=== PATIENT | male | born 1985 | race Caucasian/White ===

== ENCOUNTER 2019-12-12 09:15 | Emergency (ER) | payer OTHER ==
[~2019-12-12] VITALS: Ht 182.9 cm; Wt 113.4 kg
[2019-12-12] MEDS ORDERED: NORCO 5-325 TA1 EAC1 PO (10:02)
[2019-12-12] MEDS ORDERED: PREDNISONE 20 M20 M1 PO (10:02)
[2019-12-12 10:10] VITALS: BP 172/92
== END 2019-12-12 10:11 | disposition home or self-care (01) ==
LOC: M.ERS 09:15
DX: M79.672 Pain in left foot (principal); M79.671 Pain in right foot; E66.01 Morbid (severe) obesity due to excess calories; Z68.33 Body mass index [BMI] 33.0-33.9, adult; Z88.8 Allergy status to other drugs, medicaments and biological substances